=== PATIENT | female | born 1935 | race Caucasian/White ===

== ENCOUNTER 2016-08-21 17:46 | Emergency (ER) | payer OTHER ==
[~2016-08-21] VITALS: Ht 157.5 cm; Wt 63.7 kg
[~2016-08-21 17:46] MED LIST: AMLODIPINE BESYL5 MG PO; AMOXICILLIN500 MG PO; ASPIRIN81 M2 PO; ATORVASTATIN CA40 MG PO; BENICAR40 MG PO; CARVEDILOL12.5 MG PO; CARVEDILOL25 MG PO; CLONAZEPAM0.5 MG PO; COUMADIN4 MG PO; CRESTOR20 MG PO; DIGOXIN250 MCG PO; FUROSEMIDE20 MG PO; KLOR-CON M2020 MEQ PO; LEXAPRO10 MG PO; METFORMIN HCL500 MG PO; OCUVITE ADULT1 EACH PO; PANTOPRAZOLE SO40 MG PO; VITAMIN D31000 UNI2 PO; WARFARIN SODIUM3 MG PO
[2016-08-21 18:27] LABS: HEMATOCRIT 40.3 % (36.0-46.0); MCH 30.7 PG (29.0-34.0); MCV 93.1 FL (83-99); MEAN PLAT.VOLUME 11.5 uM^3 (9.5-12.4); PLATELET COUNT 161 K/uL (156-360); RBC DIS.WIDTH-CV 13.4 % (11.8-14.6); RBC DIS.WIDTH-SD 45.5 % (39-53); RED BLOOD COUNT 4.33 M/uL (3.80-5.20); WHITE BLOOD COUNT 8.6 K/uL (4.1-10.2)
[2016-08-21 18:36] LABS: CHLORIDE 107 mEq/L (99-109); INTER. NORMALIZED RATIO 2.7; POTASSIUM 4.5 mEq/L (3.7-5.4); PROTHROMBIN TIME 27.9 (9.2-11.2); SODIUM 142 mEq/L (136-147)
[2016-08-21 18:38] LABS: GLUCOSE 122 mg/dL (70-99)
[2016-08-21 18:40] LABS: ANION GAP 10 MEQ/L (2-14)
[2016-08-21 18:42] LABS: GFR ESTIMATE (CALCULATED) > 59 mL/min/
[2016-08-21 18:43] LABS: UREA NITROGEN (BUN) 15 mg/dL (9-23)
[2016-08-21 21:30] VITALS: BP 141/72
== END 2016-08-21 21:30 | disposition home or self-care (01) ==
LOC: EXP 17:46 → EME 17:46 → EXP 21:30
DX: R04.0 Epistaxis (principal); I10 Essential (primary) hypertension; E11.9 Type 2 diabetes mellitus without complications; E78.5 Hyperlipidemia, unspecified; Z79.01 Long term (current) use of anticoagulants; Z95.0 Presence of cardiac pacemaker; Z79.84 Long term (current) use of oral hypoglycemic drugs
CPT/HCPCS: 80048; 85027; 85610; 86900; 86901; 99281; 99284